=== PATIENT | female | born 1990 | race Caucasian/White ===

== ENCOUNTER → 2018-08-07 16:14 | Outpatient (CLI) | payer OTHER, SELFPAY ==
[2018-08-07 16:43] LABS: Appearance Urine UA SL CLOUDY; Bilirubin Urine UA NEGATIVE (NEGATIVE); Color Urine UA YELLOW; Glucose Urine UA NEGATIVE (Normal); Ketones Urine UA NEGATIVE (NEGATIVE); Leukocyte Esterase Urine UA TRACE (NEGATIVE); Nitrite Urine UA Negative (Negative); Occult Blood Urine UA 2+ (Negative); Protein Urine UA NEGATIVE (Negative); Specific Gravity Urine UA 1.025 (1.000-1.035); Urobilinogen Urine UA 0.2 E.U./dL (0.2)
[2018-08-07 17:12] LABS: RBC Urine 1-5/HPF (0-5/HPF)
[2018-08-07 17:13] LABS: Amorphous Sediment Urine 1+; Bacteria Urine Occasional (0-1); Mucus Urine 1+ (Negative); Squamous Epithelial Cell Urine 5-10 /HPF; WBC Urine 1-5/HPF (0-5/HPF)
[2018-08-07 17:16] LABS: Add Manual Diff / Slide Review NO; Basophils Percent Auto 0.4 % (0-2); Eosinophils Percent Auto 0.7 % (2-4); Hematocrit 39.8 % (36-46); Hemoglobin 13.8 g/dL (12.0-16.0); Lymphocytes Percent Auto 26.6 % (25-40); Mean Corpuscular HGB Conc 34.6 % (30-36); Mean Corpuscular Hemoglobin 30.3 PG (26-34); Mean Corpuscular Volume 87.7 fL (80-100); Monocytes Percent Auto 6.4 % (3-14); Neutrophils Absolute Auto 6500 /uL (3000-5900); Neutrophils Percent Auto 65.9 % (50-75); Platelet Count 381 X10^3/uL (150-400); Red Blood Cell Count 4.53 X10^6/uL (4.0-5.2); Red Cell Distribution Width 13.1 % (11.6-14.8); White Blood Cell Count 9.8 X10^3/uL (4.5-11.0)
[2018-08-07 18:18] LABS: Hepatitis B Surface Antigen NEGATIVE s/c (NEGATIVE); Rubella Antibody IgG 32.3 IU/mL (>15)
[2018-08-07 18:35] LABS: HIV 1 and 2 Antibody NEGATIVE (NEGATIVE); Hep C Virus Ab w/Reflex Quant NEGATIVE s/c (NEGATIVE)
[2018-08-09 16:03] LABS: HSV 2 IGG AB < 0.90 index (< 0.90); HSV1IGG < 0.90 index (< 0.90)
[2018-08-15 10:24] LABS: Rapid Plasma Reagin NON-REACTIVE
== END ==
PROVIDERS: Family Provider Specialist; PCP Specialist; Visit Provider Specialist
DX: Z34.81 Encounter for supervision of other normal pregnancy, first trimester (principal); Z3A.01 Less than 8 weeks gestation of pregnancy
CPT/HCPCS: 36415; 80055; 81003; 81015; 86695; 86696; 86703; 86787; 86803; 86850; 86900; 86901; 87086

== ENCOUNTER → 2018-09-06 11:23 | Outpatient (CLI) | payer OTHER, SELFPAY | PROVIDERS: Family Provider Specialist; PCP Specialist; Visit Provider Specialist | DX: R30.0 Dysuria (principal) | CPT/HCPCS: 87086 ==

== ENCOUNTER → 2018-11-08 15:44 | Outpatient (CLI) | payer OTHER, SELFPAY ==
--- NOTE | 2018-11-08 15:45 | DI.US.S_ITS ---
PROCEDURE: US OB >= 14 WEEKS FETUS INDICATIONS: anatomy survey OUTSIDE/PRIOR DATING DATA: Last menstrual period (LMP): 05/21/18. LMP-based estimated date of delivery (RUBIN): 02/25/19. First dating scan (date and location): 08/07/18, by Dr. Schwartz. Estimated date of delivery (RUBIN) from first dating scan: 03/25/19, by Dr. Schwartz. TECHNIQUE: Real-time scanning was performed of the fetus, with image documentation and biometric measurements. Endovaginal scanning: Not needed for the study. COMPARISON: [facility], , OB <= 14 WEEKS FETUS, 09/06/2018, 11:07. [facility], , OB <= 14 WEEKS FETUS, 08/07/2018, 16:04. [facility], , OB >= 14 WEEKS FETUS, 11/01/2018, 11:55. FINDINGS: General: A single living intrauterine gestation is present. Presentation: Breech. Placenta: Placental position is anterior, without previa. Amniotic fluid index: 13.8 cm, normal range is 5-24 cm. heart rate: 140 beats per minute. Maternal cervical canal: 4.0 cm long. Normal lower limit is 2.5 cm. biometrics: Biparietal diameter: 4.8 cm, 20 weeks 3 days Head circumference: 18.2 cm, 20 weeks 4 days Abdominal circumference: 15.8 cm, 20 weeks 6 days Femur length: 3.4 cm, 20 weeks 4 days Estimated gestational age from initial scan: 20 weeks 3 days Composite gestational age from present scan: 20 weeks 4 days Estimated weight and percentile: 375 g, 64th percentile Measurement variability for biometric dating: +/- 7 days from 14 weeks to 15 weeks 6 days gestation, +/- 10 days from 16 weeks to 21 weeks 6 days gestation, +/- 2 weeks from 22 weeks to 27 weeks 6 days gestation, +/- 3 weeks for 28 weeks gestation or later. weight reference: 4500 g or EFW >90/95% is considered macrosomia or large for gestational age. EFW <10% is small for gestational age. EFW 5% or less is considered intra-uterine growth restriction. Anatomic survey: Neuro: Ventricles are non-dilated at less than 10 mm. Cisterna magna is normal at 3-11 mm. Cerebellum is normal in size and morphology. Nuchal skin fold: Normal at less than 6 mm between 14-21 weeks gestational age. Face: Nose and lips, facial profile are normal. Spine: No evidence for spina bifida. Heart: 4-chambered heart is present, with normal ventricular outflow tracts. Diaphragm: Diaphragm is intact. Stomach: Left-sided stomach is present. Kidneys: No hydronephrosis. Normal is less than 5 mm in 2nd trimester, less than 7 mm in 3rd trimester. Cord: 3-vessel cord has orthotopic insertion. Bladder: Normal in size. Extremities: All 4 extremities identified. IMPRESSION: Single living intrauterine gestation in breech presentation with appropriate interval growth and no anomalies seen. The delivery date is projected to be centered on 03/25/19, plus or -5 days, based on the first OB ultrasound by Dr. Schwartz 08/07/18. Dictated by: Jamshid Cruz M.D. on 11/08/2018 at 16:41 Approved by: Jamshid Cruz M.D. on 11/08/2018 at 16:44
== END ==
PROVIDERS: PCP Specialist; Visit Provider Specialist
DX: Z34.82 Encounter for supervision of other normal pregnancy, second trimester (principal); Z36.89 Encounter for other specified antenatal screening; Z3A.20 20 weeks gestation of pregnancy
CPT/HCPCS: 76811

== ENCOUNTER → 2018-12-12 13:43 | Outpatient (CLI) | payer OTHER, SELFPAY ==
[2018-12-12 15:36] LABS: Hematocrit 40.1 % (36-46); Hemoglobin 13.5 g/dL (12.0-16.0)
[2018-12-12 16:30] LABS: GTT (PREG) 1 Hour PP 50gm Dose 148 mg/dL (76-139)
== END ==
PROVIDERS: PCP Specialist; Visit Provider Specialist
DX: Z34.82 Encounter for supervision of other normal pregnancy, second trimester (principal)
CPT/HCPCS: 36415; 82950; 85014; 85018

== ENCOUNTER → 2018-12-18 07:57 | Outpatient (CLI) | payer OTHER, SELFPAY ==
[2018-12-18 10:33] LABS: Glucose Fasting Gestational 83 mg/dL (76-95)
[2018-12-18 10:33] LABS: Glucose 1 Hour Gest 151 mg/dL (76-180)
[2018-12-18 11:21] LABS: Glucose 2 Hour Gest 127 mg/dL (76-155)
[2018-12-18 11:24] LABS: Glucose Tol Interp,Gestational INTERPRETATION
[2018-12-18 12:17] LABS: Glucose 3 Hour Gest 79 mg/dL (76-140)
== END ==
PROVIDERS: PCP Specialist; Visit Provider Specialist
DX: O99.810 Abnormal glucose complicating pregnancy (principal)
CPT/HCPCS: 82951; 82952

== ENCOUNTER → 2019-02-03 09:47 | Outpatient (CLI) | payer OTHER, SELFPAY ==
[2019-02-03 10:16] LABS: Influenza A and B by PCR Rapid Negative (Negative)
== END ==
PROVIDERS: PCP Specialist; Visit Provider Physician Assistant
DX: R68.89 Other general symptoms and signs (principal)
CPT/HCPCS: 87400

== ENCOUNTER → 2019-02-24 09:15 | Outpatient (CLI) | payer OTHER, SELFPAY ==
[2019-02-25 07:54] LABS: Strep Grp B PCR POS for Grp B Strep
== END ==
PROVIDERS: PCP Specialist; Visit Provider Specialist
DX: Z34.03 Encounter for supervision of normal first pregnancy, third trimester (principal); Z3A.35 35 weeks gestation of pregnancy
CPT/HCPCS: 87653

== ENCOUNTER 2019-02-24 09:16 | Outpatient (CLI) | payer OTHER, SELFPAY ==
--- NOTE | 2019-02-24 09:41 | PM.OBTRLD ---
Visit Information Visit Information Date of evaluation: 02/24/19 Primary OB Provider: Davina Schwartz Reason for Evaluation: Yes non-stress test non-stress test reason: decreased movement PFSH Surgical History (Updated 07/30/18 @ 15:49 by Marga Almanzar) History of third molar tooth extraction (Resolved) Social History Smoking Status: Never smoker Social History Smoking Status: Never smoker Evaluation Evaluation Baseline heart rate: 150 Variability: Moderate (11-25) monitor accelerations: Present monitor decelerations: Absent Category of Tracing: I Diagnosis, Plan/Disposition Final Diagnosis (1) 34 weeks gestation of : Current Visit: Yes Status: Acute (2) Decreased movement affecting management of in third trimester: Current Visit: Yes Status: Acute Plan/Disposition Plan: Reactive nonstress test OB Disposition: home
== END 2019-02-24 09:57 | disposition home or self-care (01) ==
LOC: LABOR 10:14 → OB 02-25 08:03
PROVIDERS: PCP Specialist; Visit Provider Specialist
DX: O36.8130 Decreased fetal movements, third trimester, not applicable or unspecified (principal); Z3A.34 34 weeks gestation of pregnancy
CPT/HCPCS: 59025; 87653; G0378; G0379

== ENCOUNTER 2019-03-20 09:30 | Inpatient (IN) | payer OTHER, SELFPAY ==
[2019-03-20 11:00] LABS: Add Manual Diff / Slide Review NO; Basophils Absolute Auto 100 /uL (0-100); Basophils Percent Auto 0.7 % (0-2); Eosinophils Absolute Auto 0 /uL (0-450); Eosinophils Percent Auto 0.3 % (2-4); Hematocrit 38.7 % (36-46); Hemoglobin 12.5 g/dL (12.0-16.0); Lymphocytes Absolute Auto 2200 /uL (1100-4500); Lymphocytes Percent Auto 17.4 % (25-40); Mean Corpuscular HGB Conc 32.3 % (30-36); Mean Corpuscular Hemoglobin 27.1 PG (26-34); Mean Corpuscular Volume 84.1 fL (80-100); Monocytes Absolute Auto 1000 /uL (0-900); Monocytes Percent Auto 7.8 % (3-14); Neutrophils Absolute Auto 9400 /uL (1500-7000); Neutrophils Percent Auto 73.8 % (50-75); Platelet Count 369 X10^3/uL (150-400); Red Cell Distribution Width 14.4 % (11.6-14.8); White Blood Cell Count 12.8 X10^3/uL (4.5-11.0)
[2019-03-20] MEDS: PENICILLIN G POTASSIUM 5,000,000 UNIT in DEXTROSE 5% IN WATER 250 ML IV (11:00)
[2019-03-20] MEDS: OXYTOCIN PREMIX 30 UNIT/500 ML PLAST..BAG IV (12:52)
--- NOTE | 2019-03-20 16:53 | PM.OBHP.1 ---
OB HPI Date/Time Date of admission: 03/20/19 Date Patient Seen: 03/20/19 Time Patient Seen: 10:00 History of Present Condition Chief complaint: EVALUATION OF LABOR : 3 Para: 1 Estimated Date of Delivery: 03/25/19 Estimated Gestational Age (weeks): 39 Narrative: Senait Douglas is a 28 year old female admitted for induction for advanced cervical dilation in distance from the hospital Indications Indication for induction OB: maternal distance History of Present care: good care, initiated at week # (11), number of visits (13) and pounds weight gain (16) Dating criteria: LMP confirmed by 1st trimester US Ultrasounds: normal mid trimester US Obstetrical complications: none Medical complications: none Preadmission Labs Blood type: A (+) positive -: Antibody screen: negative, GBS status: positive, HBsAG: negative, HIV: negative and RPR/VDLR: negative -: Chlamydia screen: not detected and Gonorrhea screen: not detected -: Rubella: immune and Varicella: immune HCAB: negative 1 hr GTT: 148 3 hr GTT: 1 hr (151), 2 hr (127) and 3 hr (79) Fasting blood glucose: 83 Prior (ies) History: 05/2017 Vaginal delivery male 9 lb 9 oz Evaluation Evaluation Baseline heart rate: 130 Variability: Moderate (11-25) monitor accelerations: Present monitor decelerations: Absent Contraction Frequency (minutes): 5 Uterine Contraction Intensity: Mild Category of Tracing: I Cervical dilation (cm): 6 Cervical effacement (%): 75 station: -2 Laboratory results: Laboratory Tests 03/20/19 03/20/19 10:25 10:25 WBC 12.8 H RBC 4.60 Hgb 12.5 Hct 38.7 MCV 84.1 MCH 27.1 MCHC 32.3 RDW 14.4 Plt Count 369 Neut % (Auto) 73.8 Lymph % (Auto) 17.4 L [place] % (Auto) 7.8 Eos % (Auto) 0.3 L Baso % (Auto) 0.7 Neut # (Auto) 9400 H Lymph # (Auto) 2200 [place] # (Auto) 1000 H Eos # (Auto) 0 Baso # (Auto) 100 Blood Type A Positive Antibody Screen Negative ON LICENSE OF [facility] Surgical History (Updated 07/30/18 @ 15:49 by Marga Almanzar) History of third molar tooth extraction (Resolved) Social History Smoking Status: Never smoker Social History Smoking Status: Never smoker Meds Home Medications Medication Instructions Recorded Confirmed Type Breast Pump - Double Electric u PRN PRN 03/20/19 History Allergies Allergy/AdvReac Type Severity Reaction Status Date / Time codeine [CODEINE] Allergy Unknown Verified 02/03/19 10:23 epinephrine [EPINEPHRINE] Allergy Unknown BLACK OUT Verified 02/03/19 10:23 Review of Systems Review of Systems Good movement. No leakage of fluid. No signs or symptoms of preeclampsia. All systems reviewed & are unremarkable except as noted in HPI and below Exam Narrative Exam Narrative: HEENT exam within normal limits. Lungs are clear to auscultation and percussion. Heart is regular rate and rhythm no S3-S4 or murmurs. Abdomen is gravid and nontender. extremities without edema and nontender. Objective Labs Result Diagrams: 03/20/19 10:25 Labs: Laboratory Results - last 24 hr 03/20/19 03/20/19 10:25 10:25 WBC 12.8 H RBC 4.60 Hgb 12.5 Hct 38.7 MCV 84.1 MCH 27.1 MCHC 32.3 RDW 14.4 Plt Count 369 Neut % (Auto) 73.8 Lymph % (Auto) 17.4 L [place] % (Auto) 7.8 Eos % (Auto) 0.3 L Baso % (Auto) 0.7 Neut # (Auto) 9400 H Lymph # (Auto) 2200 [place] # (Auto) 1000 H Eos # (Auto) 0 Baso # (Auto) 100 Blood Type A Positive Antibody Screen Negative Assessment and Plan Assessment and Plan Assessment and Plan narrative: Thirty-nine week gestation with advanced cervical dilation admitted for AROM induction. Plan is for vaginal delivery. Patient will receive IV penicillin for positive group B strep culture. Patient requests epidural catheter
--- NOTE | 2019-03-20 16:59 | P.HPOB_ITS ---
OB HPI Date/Time Date of admission: 03/20/19 Date Patient Seen: 03/20/19 Time Patient Seen: 10:00 History of Present Condition Chief complaint: EVALUATION OF LABOR : 3 Para: 1 Estimated Date of Delivery: 03/25/19 Estimated Gestational Age (weeks): 39 Narrative: Senait Douglas is a 28 year old female admitted for induction for advanced cervical dilation in distance from the hospital Indications Indication for induction OB: maternal distance History of Present care: good care, initiated at week # (11), number of visits (13) and pounds weight gain (16) Dating criteria: LMP confirmed by 1st trimester US Ultrasounds: normal mid trimester US Obstetrical complications: none Medical complications: none Preadmission Labs Blood type: A (+) positive -: Antibody screen: negative, GBS status: positive, HBsAG: negative, HIV: negative and RPR/VDLR: negative -: Chlamydia screen: not detected and Gonorrhea screen: not detected -: Rubella: immune and Varicella: immune HCAB: negative 1 hr GTT: 148 3 hr GTT: 1 hr (151), 2 hr (127) and 3 hr (79) Fasting blood glucose: 83 Prior (ies) History: 05/2017 Vaginal delivery male 9 lb 9 oz Evaluation Evaluation Baseline heart rate: 130 Variability: Moderate (11-25) monitor accelerations: Present monitor decelerations: Absent Contraction Frequency (minutes): 5 Uterine Contraction Intensity: Mild Category of Tracing: I Cervical dilation (cm): 6 Cervical effacement (%): 75 station: -2 Laboratory results: Laboratory Tests 03/20/19 03/20/19 10:25 10:25 WBC 12.8 H RBC 4.60 Hgb 12.5 Hct 38.7 MCV 84.1 MCH 27.1 MCHC 32.3 RDW 14.4 Plt Count 369 Neut % (Auto) 73.8 Lymph % (Auto) 17.4 L [place] % (Auto) 7.8 Eos % (Auto) 0.3 L Baso % (Auto) 0.7 Neut # (Auto) 9400 H Lymph # (Auto) 2200 [place] # (Auto) 1000 H Eos # (Auto) 0 Baso # (Auto) 100 Blood Type A Positive Antibody Screen Negative [facility] Surgical History (Updated 07/30/18 @ 15:49 by Marga Almanzar) History of third molar tooth extraction (Resolved) Social History Smoking Status: Never smoker Social History Smoking Status: Never smoker Meds Home Medications Medication Instructions Recorded Confirmed Type Breast Pump - Double Electric u PRN PRN 03/20/19 History Allergies Allergy/AdvReac Type Severity Reaction Status Date / Time codeine [CODEINE] Allergy Unknown Verified 02/03/19 10:23 epinephrine [EPINEPHRINE] Allergy Unknown BLACK OUT Verified 02/03/19 10:23 Review of Systems Review of Systems Good movement. No leakage of fluid. No signs or symptoms of pre eclampsia. All systems reviewed & are unremarkable except as noted in HPI and below Exam Narrative Exam Narrative: HEENT exam within normal limits. Lungs are clear to auscultation and percussion. Heart is regular rate and rhythm no S3-S4 or murmurs. Abdomen is gravid and nontender. extremities without edema and nontender. Objective Labs Result Diagrams: 03/20/19 10:25 Labs: Laboratory Results - last 24 hr 03/20/19 03/20/19 10:25 10:25 WBC 12.8 H RBC 4.60 Hgb 12.5 Hct 38.7 MCV 84.1 MCH 27.1 MCHC 32.3 RDW 14.4 Plt Count 369 Neut % (Auto) 73.8 Lymph % (Auto) 17.4 L [place] % (Auto) 7.8 Eos % (Auto) 0.3 L Baso % (Auto) 0.7 Neut # (Auto) 9400 H Lymph # (Auto) 2200 [place] # (Auto) 1000 H Eos # (Auto) 0 Baso # (Auto) 100 Blood Type A Positive Antibody Screen Negative Assessment and Plan Assessment and Plan Assessment and Plan narrative: Thirty-nine week gestation with advanced cervical dilation admitted for AROM induction. Plan is for vaginal delivery. Patient will receive IV penicillin for positive group B strep culture. Patient requests epidural catheter
--- NOTE | 2019-03-20 16:59 | PM.OBPRVD ---
Delivery date: 03/20/19 Intrapartal events: None Induction method: AROM Delivery augmentation: pitocin Delivery monitor: external FHT and external uterine Route of delivery: L&D Laceration Description: None Estimated blood loss (mL): 200 Anesthesia type: Epidural Narrative: Patient arrived on Labor and delivery for induction for advanced cervical dilation and distance from the hospital. She was AROMed for clear fluid. She received IV penicillin for positive group B strep culture. She received an epidural catheter for pain control. She had Pitocin added to augment her labor. heart tones category 1 throughout labor. The patient delivered spontaneously, over an intact perineum. A loose nuchal cord was released with delivery of the head. The viable female infant was placed on maternal abdomen. After the cord stopped pulsating the cord was clamped, cut and cord bloods obtained. The placenta delivered spontaneously, intact, with 3 vessels. There were no cervical, vaginal, or perineal tears. Both infant and mother doing well. [place] Baby 1: Infant gender: Female Presentation: vertex position: Right Occiput Anterior Placenta delivery description: Spontaneous cord vessel description: Nuchal Cord (Loose) score (1 min): 8 score (5 min): 9 Plan for aftercare: Routine care
[2019-03-20 18:59] VITALS: BP 113/56
[2019-03-21] MEDS: IBUPROFEN 600 MG TABLET PO ×3 (00:30→17:03)
[2019-03-21 07:40] LABS: Hematocrit 35.5 % (36-46); Hemoglobin 11.7 g/dL (12.0-16.0)
--- NOTE | 2019-03-21 10:08 | P.DS_ITS ---
Discharge Providers Date of admission: 03/20/19 09:30 Discharge Date: 03/21/19 Primary care physician: Davina Schwartz MD Consults: 03/20/19 10:25 Consult to Anesthesiology Urgent Comment: Consulting Provider: Anesthesiologist Reason for consultation: Epidural Has provider been notified: No 03/21/19 00:23 Consult to Holistic Health Practitioner Routine Comment: Discharge provider: Davina Schwartz MD Summary Date Patient Seen: 03/21/19 Time Patient Seen: 08:00 Procedures: Vaginal delivery Hospital Course: Patient arrived on Labor and delivery for a AROM induction for advanced cervical dilation and distance from the hospital. She received an epidural catheter for pain control. She received IV penicillin for positive group B strep culture. She had a spontaneous vaginal delivery. She is breast-feeding without difficulty. Urinating and ambulating well. Pain is mild. Peripartum Data Infant Delivery Method: Natural Vaginal Laceration description: None Procedures: IV antibiotics for group B strep culture positive, epidural catheter, spontaneous vaginal delivery. complications: none Time Spent with Patient Total time spent providing and/or coordinating discharge services: Objective Labs Result Diagrams: 03/21/19 06:57 Labs: Laboratory Results - last 24 hr 03/20/19 03/20/19 03/21/19 10:25 10:25 06:57 WBC 12.8 H RBC 4.60 Hgb 12.5 11.7 L Hct 38.7 35.5 L MCV 84.1 MCH 27.1 MCHC 32.3 RDW 14.4 Plt Count 369 Neut % (Auto) 73.8 Lymph % (Auto) 17.4 L [place] % (Auto) 7.8 Eos % (Auto) 0.3 L Baso % (Auto) 0.7 Neut # (Auto) 9400 H Lymph # (Auto) 2200 [place] # (Auto) 1000 H Eos # (Auto) 0 Baso # (Auto) 100 Blood Type A Positive Antibody Screen Negative Exam Vital Signs (past 8 hours): Blood pressure 91/61, pulse 78, temperature 97.6? Narrative Exam Narrative: Patient's abdomen is soft, nontender. Uterus is firm, at U, nontender. Mild lochia. Extremities without edema and nontender. patient is a positive and rubella immune. Discharge Plan Discharge Plan Patient Disposition: Home Discharge Med Rec/Prescriptions Prescriptions: New ibuprofen 600 mg Tablet 600 mg PO Q6HR PRN (Reason: Pain, Mild (1-3)) Qty: 30 RF: 0 Continued Breast Pump - Double Electric PRN PRN (Reason: Labor Induction) RF: 0 Follow up/Referrals: Davina Schwartz MD [Primary Care Provider] - 1 Month Provider Discharge Instructions Diet: Regular Activity: Nothing in vagina for 4 weeks Skin/Wound/Dressing Care Report to your healthcare provider any signs of infection, such as:: chills, fever, increased pain and unusual drainage Visit Report/Discharge Packet Stand Alone Forms: Discharge: Care Discharge Data Primary Care Provider: Davina Schwartz Attending Provider: Davina Schwartz Admit Date/Time: 03/20/19 09:30
[2019-03-21 17:11] VITALS: BP 113/79; PULSE 84; RESP 18; TEMP 36.5
== END 2019-03-21 18:05 | disposition home or self-care (01) | DRG 807 ==
PROVIDERS: Admitting Provider Specialist; PCP Specialist; Visit Provider Specialist
DX: O99.824 Streptococcus B carrier state complicating childbirth (principal); Z37.0 Single live birth; Z3A.39 39 weeks gestation of pregnancy; O69.81X0 Labor and delivery complicated by cord around neck, without compression, not applicable or unspecified
CPT/HCPCS: 01967; 36415; 59050; 59400; 85014; 85018; 85025; 86850; 86900; 86901; G0379; J2540; J2590

== ENCOUNTER → 2021-02-15 09:50 | Outpatient (CLI) | payer OTHER, SELFPAY ==
[2021-02-15 11:52] LABS: TSH w/ Reflex to FT4 1.14 uIU/mL (0.47-4.68)
== END ==
PROVIDERS: Referring Provider Specialist; Visit Provider Specialist
DX: R63.5 Abnormal weight gain (principal); Z83.49 Family history of other endocrine, nutritional and metabolic diseases
CPT/HCPCS: 36415; 84443

== ENCOUNTER 2023-02-11 21:42 | Emergency (ER) | payer OTHER, SELFPAY ==
[2023-02-11 21:46] VITALS: BP 139/90; PULSE 114; RESP 16; TEMP 36.6; O2SAT 100; BMI 35.4
--- NOTE | 2023-02-11 21:49 | DI.US.S_ITS ---
PROCEDURE: US OB <= 14 WEEKS FETUS INDICATIONS: pelvic bleeding, cramping 11.5 weeks OUTSIDE/PRIOR DATING DATA: Last menstrual period (LMP): 11/23/2022. LMP-based estimated date of delivery (RUBIN): 08/30/2023. First dating scan (date and location): 01/23/2023. Estimated date of delivery (RUBIN) from first dating scan: 08/29/2023. TECHNIQUE: Real-time scanning was performed of the fetus and maternal pelvic organs, with image documentation. Endovaginal scanning was also performed to better visualize the fetus and maternal ovaries. COMPARISON: [facility], US, US OB <= 14 WEEKS FETUS, 01/23/2023, 15:59. FINDINGS: Embryo: There is an intrauterine with the pole demonstrating a crown-rump length of 5.2 cm corresponding to gestational age of 11 weeks 6 days. There is heart motion with a rate of 180 beats per minute. Maternal organs: The ovaries were not visualized in the adnexa. No adnexal masses identified. IMPRESSION: 1. Single living intrauterine demonstrating appropriate interval growth with calculated gestational age of 11 weeks 6 days, concordant with expected gestational age at 11 weeks 3 days based on LMP. We strive to produce accurate, complete, and clear reports of imaging services. To assist us in improving patient care, this report was composed using standard report templates and voice recognition software. Therefore, it may contain abnormal punctuation, insertions and/or omissions. Occasional wrong-word or sound-alike substitutions may occur. Though we review the report and make efforts to correct it, we do recommend that the report be read carefully in proper context to recognize any text inaccuracies. A Dictated by: Rolando Doty M.D. on 02/11/2023 at 23:50 Approved by: Rolando Doty M.D. on 02/12/2023 at 0:01
[2023-02-11 21:51] VITALS: PULSE 98; RESP 16; O2SAT 98
[2023-02-11 22:57] LABS: Add Manual Diff / Slide Review NO; Basophils Absolute Auto 100 /uL (0-100); Basophils Percent Auto 0.5 % (0-2); Eosinophils Absolute Auto 0 /uL (0-450); Eosinophils Percent Auto 0.4 % (2-4); Hematocrit 43.5 % (36-46); Lymphocytes Absolute Auto 2300 /uL (1100-4500); Lymphocytes Percent Auto 20.3 % (25-40); Mean Corpuscular HGB Conc 34.4 % (30-36); Mean Corpuscular Hemoglobin 30.2 PG (26-34); Mean Corpuscular Volume 87.9 fL (80-100); Monocytes Absolute Auto 600 /uL (0-900); Monocytes Percent Auto 5.4 % (3-14); Neutrophils Absolute Auto 8300 /uL (1500-7000); Neutrophils Percent Auto 73.4 % (50-75); Platelet Count 387 X10^3/uL (150-400); Red Blood Cell Count 4.95 X10^6/uL (4.0-5.2); Red Cell Distribution Width 12.9 % (11.6-14.8); White Blood Cell Count 11.4 X10^3/uL (4.5-11.0)
[2023-02-11 23:19] LABS: BUN Creatinine Ratio 11.8 (6-22); Blood Urea Nitrogen 6 mg/dL (7-17); Calcium 9.6 mg/dL (8.4-10.2); Carbon Dioxide 19 mmol/L (22-32); Chloride 104 mmol/L (98-107); Estimated Glomerular Filt Rate > 60 mL/min (>60); Glucose 132 mg/dL (70-100); HEMOLYSIS < 15 (0-50); Potassium 3.4 mmol/L (3.4-5.1); Sodium 136 mmol/L (137-145)
--- NOTE | 2023-02-11 23:46 | ED_ITS ---
HPI - General Chief complaint: Vaginal Bleeding Stated complaint: bleeding/ 11.5 wks prego Time Seen by Provider: 02/11/23 21:48 Source: patient Mode of arrival: Ambulatory Limitations: no limitations History of Present Illness HPI Narrative: 32-year-old female nonsmoker without significant medical history presents with family in the chief complaint a small amount of vaginal bleeding earlier today. She is a at 11 weeks and admits that she has been increasingly constipated over the past week or 2 and has been taking Zofran to help with episodes of vomiting. She states that she is been taking some pzio-hnt-clozfqj medications to help with moving her bowels but this evening she attempted to perform a self check and scratched her vaginal wall with her finger and bled briefly. She called her OB provider who stated there was very low likelihood of any significant abnormality but suggested it would be reasonable to come to the emergency department to put her mind at rest. She denies any fever or chills. She is not dizzy nor weak or lightheaded. She has no chest pain or shortness of breath and denies abdominal pain, diarrhea. She is had no vaginal bleeding in an ongoing fashion nor leakage of fluid and denies any urinary complaints. Related Data Home Medications Medication Instructions Recorded Confirmed prenat.vits,meliton,qnz-eflu-ymotp 1 tab PO DAILY 12/22/22 01/23/23 Previous Rx's Medication Instructions Recorded ondansetron 4 mg disintegrating 4 mg PO Q6-8H PRN nausea and 01/12/23 tablet vomiting #20 tabs Allergies Allergy/AdvReac Type Severity Reaction Status Date / Time codeine [CODEINE] Allergy Unknown Verified 02/11/23 21:46 epinephrine [EPINEPHRINE] AdvReac Unknown BLACK OUT Verified 02/11/23 21:46 Review of Systems Review of Systems Narrative: GENERAL: Denies chills, fatigue, malaise, fever, sweats. HEENT: Denies sinus pain, ear pain, sore throat, difficulty swallowing, dizziness. RESPIRATORY: Denies dyspnea, cough, wheezing, hemoptysis, sputum. CARDIOVASCULAR: Denies chest pain, palpitations, orthopnea, edema, GASTROINTESTINAL: See HPI : See HPI MUSCULOSKELETAL: denies weakness, joint pain, or bony pain SKIN: Denies rash, skin lesions, or other NEUROLOGIC: Denies weakness, headache, numbness, change in speech, confusion, seizures, incoordination. PSYCHIATRIC: No concerning psychosocial issues. 12 point review of systems is negative except for those stated above Exam Narrative Exam Narrative: GEN: AOx3 and in mild distress EYES: Pupils are equal, round, and reactive to light and accommodation. Extraocc ular muscles are intact bilaterally. There is no subconjunctival hemorrhage or exudate. CHEST: Lungs are clear to auscultation bilaterally and free of wheezes, rales, or rhonchi. Heart rate is regular rhythm, there are no murmurs, clicks, rubs, or gallops. There is no chest wall tenderness. ABD: Abdomen is soft and nontender. There is no guarding or rebound. Bowel sounds are normal in all 4 quadrants. There is no mass or organomegaly. EXT: Full painless ROM of all extremities with no loss of sensation or strength. SKIN: Warm, pink, and dry. No erythema or rash Initial Vital Signs Initial Vital Signs: Vital Signs Temperature 97.9 F 02/11/23 21:46 Pulse Rate 114 H 02/11/23 21:46 Respiratory Rate 16 02/11/23 21:46 Blood Pressure 139/90 02/11/23 21:46 Pulse Oximetry 100 02/11/23 21:46 Oxygen Delivery Method Room Air 02/11/23 21:46 Course Orders Ordered: ED Orders 02/11/23 21:49 US OB <= 14 weeks fetus Stat 02/11/23 22:47 Basic Metabolic Panel Stat Complete Blood Count AUTO DIFF Stat HCG Quantitative /Beta subunit Stat Vital Signs Vital signs: Vital Signs - 8 hr 02/11/23 21:51 02/11/23 21:46 02/12/23 00:12 Temperature 97.9 F 97.8 F Pulse Rate 98 H 114 H 92 H Respiratory Rate 16 16 16 Blood Pressure 139/90 131/86 Pulse Oximetry 98 100 100 Oxygen Delivery Method Room Air Room Air Room Air MDM - OB/Uterine Contractions Lab Data 02/11/23 22:47 02/11/23 22:47 Labs: Lab Results 02/11/23 02/11/23 02/11/23 Range/Units 22:47 22:47 22:47 WBC 11.4 H (4.5-11.0) X10^3/uL RBC 4.95 (4.0-5.2) X10^6/uL Hgb 15.0 (12.0-16.0) g/dL Hct 43.5 (36-46) % MCV 87.9 (80-100) fL MCH 30.2 (26-34) PG MCHC 34.4 (30-36) % RDW 12.9 (11.6-14.8) % Plt Count 387 (150-400) X10^3/uL Neut % (Auto) 73.4 (50-75) % Lymph % (Auto) 20.3 L (25-40) % [place] % (Auto) 5.4 (3-14) % Eos % (Auto) 0.4 L (2-4) % Baso % (Auto) 0.5 (0-2) % Neut # (Auto) 8300 H (6461-8194) /uL Lymph # (Auto) 2300 (7614-2360) /uL [place] # (Auto) 600 (0-900) /uL Eos # (Auto) 0 (0-450) /uL Baso # (Auto) 100 (0-100) /uL Sodium 136 L (137-145) mmol/L Potassium 3.4 (3.4-5.1) mmol/L Chloride 104 (98-107) mmol/L Carbon Dioxide 19 L (22-32) mmol/L BUN 6 L (7-17) mg/dL Creatinine 0.51 L (0.52-1.04) mg/dL Estimated GFR > 60 (>60) mL/min BUN/Creatinine Ratio 11.8 (6-22) Glucose 132 H (70-100) mg/dL Calcium 9.6 (8.4-10.2) mg/dL HCG, Quant 03282 mIU/mL [facility] Narrative Medical decision making narrative: [32] year old patient presents with Multiple etiologies for patient's symptoms considered including, but not limited to: Traumatic injury, bowel obstruction, urinary tract infection, miscarriage versus other Prior Charts reviewed in our EMR Primary Historian: patient Labs reviewed and interpreted by myself: Imaging reviewed: Single living IUP at 11 weeks Patient with very brief and minimal vaginal bleeding likely a consequence from an accidental abrasion from her finger prior to arrival. Patient asymptomatic for duration of visit, reassuring ultrasound, no further evaluation needed Findings and discharge diagnosis discussed with patient/family followed by verbalization of understanding Return precautions discussed with patient/family whom verbalize understanding of diagnosis and plan Discharge Plan Departure Patient Disposition: Home Clinical Impression: Constipation Instructions: DI for Constipation Activity Restrictions/Additional Instructions: *You have been diagnosed with [constipation, as we discussed your ultrasound is very reassuring.] *What to do: *Please continue to take your regular medications as directed. Per Dr. Perry's recommendations please increase your vitamin B6 and consider the addition of doxylamine. Hopefully this will allow you to take less Zofran which is known to be constipating [ ] New medication prescriptions sent to your pharmacy: [ ] [ ] New medication written as a paper prescription [ ] No new medications given *Please follow up with your primary care provider in 2-3 days, call for an appointment. Let them know you were seen in the Emergency Department and that we ask that you be seen in follow up. We will electronically transmit a record of today's note if your PCP is in our system *Return to Emergency Department if you should have any new, worsening or concerning symptoms, such as [fever greater than 101 F, shaking chills, worsening pain, persistent vomiting or other bothersome symptoms] Prescriptions: No Action ondansetron 4 mg tablet,disintegrating 4 mg PO Q6-8H PRN (Reason: nausea and vomiting) Qty: 20 2RF prenat.vits,meliton,otk-lyvg-bgvok Tablet 1 tab PO DAILY Referrals: Miscellaneous,Doctor, MD [Primary Care Provider] - Stand Alone Forms: Patient Portal/API
[2023-02-12 00:01] LABS: HCG Quantitative /Beta subunit 52061 mIU/mL
[2023-02-12 00:12] VITALS: BP 131/86; PULSE 92; RESP 16; TEMP 36.6; O2SAT 100
== END 2023-02-12 00:13 | disposition home or self-care (01) ==
PROVIDERS: Emergency Provider Emergency Medicine
DX: O46.91 Antepartum hemorrhage, unspecified, first trimester (principal); K59.00 Constipation, unspecified; Z3A.11 11 weeks gestation of pregnancy
CPT/HCPCS: 36415; 76801; 76817; 80048; 84702; 85025; 99284

== ENCOUNTER → 2023-02-15 15:15 | Outpatient (CLI) | payer OTHER, SELFPAY ==
[2023-02-15 15:39] LABS: Add Manual Diff / Slide Review NO; Basophils Absolute Auto 0 /uL (0-100); Basophils Percent Auto 0.4 % (0-2); Eosinophils Absolute Auto 0 /uL (0-450); Eosinophils Percent Auto 0.4 % (2-4); Hematocrit 42.1 % (36-46); Hemoglobin 14.7 g/dL (12.0-16.0); Lymphocytes Absolute Auto 2300 /uL (1100-4500); Lymphocytes Percent Auto 22.7 % (25-40); Mean Corpuscular HGB Conc 34.9 % (30-36); Mean Corpuscular Hemoglobin 30.9 PG (26-34); Mean Corpuscular Volume 88.5 fL (80-100); Monocytes Absolute Auto 500 /uL (0-900); Monocytes Percent Auto 5.3 % (3-14); Neutrophils Absolute Auto 7200 /uL (1500-7000); Neutrophils Percent Auto 71.2 % (50-75); Platelet Count 367 X10^3/uL (150-400); Red Blood Cell Count 4.75 X10^6/uL (4.0-5.2); Red Cell Distribution Width 13.1 % (11.6-14.8); White Blood Cell Count 10.1 X10^3/uL (4.5-11.0)
[2023-02-15 17:18] LABS: Hepatitis B Surface Antigen NEGATIVE s/c (NEGATIVE); Rubella Antibody IgG 27.9 IU/mL (>15)
[2023-02-15 17:40] LABS: HIV 1 & 2 Ab/Ag 4th Gen Combo NEGATIVE (NEGATIVE); Hep C Virus Ab w/Reflex Quant NEGATIVE s/c (NEGATIVE)
[2023-02-16 03:09] LABS: RPR Screen Non Reactive (Non Reactive)
[2023-02-16 11:34] LABS: Varicella IgG Antibody 432 index (Immune >165)
== END ==
PROVIDERS: Referring Provider Obstetrics & Gynecology; Visit Provider Obstetrics & Gynecology
DX: Z34.81 Encounter for supervision of other normal pregnancy, first trimester (principal)
CPT/HCPCS: 36415; 80055; 86787; 86803; 86850; 86900; 86901; 87389

== ENCOUNTER → 2023-03-14 15:33 | Outpatient (CLI) | payer OTHER, SELFPAY | PROVIDERS: Visit Provider Obstetrics & Gynecology | DX: Z34.81 Encounter for supervision of other normal pregnancy, first trimester (principal) | CPT/HCPCS: 87077; 87086; 87147 ==

== ENCOUNTER → 2023-04-12 14:23 | Outpatient (CLI) | payer OTHER, SELFPAY ==
--- NOTE | 2023-04-12 14:24 | DI.US.S_ITS ---
PROCEDURE: US OB >= 14 WEEKS FETUS INDICATIONS: ANATOMY SCAN OUTSIDE/PRIOR DATING DATA: Last menstrual period (LMP): 11/23/2022. LMP-based estimated date of delivery (RUBIN): 08/30/2023. First dating scan (date and location): 01/23/2023. Estimated date of delivery (RUBIN) from first dating scan: 08/29/2023. The calculations are made using the working RUBIN of 08/29/2023. TECHNIQUE: Real-time scanning was performed of the fetus, with image documentation and biometric measurements. Endovaginal scanning: None COMPARISON: [facility], , OB >= 14 WEEKS FETUS, 03/14/2023, 16:09. FINDINGS: General: A single living intrauterine gestation is present. Presentation: Vertex. Placenta: Placental position is anterior , without previa. Amniotic fluid index: 10.8 cm, normal range is 5-24 cm. Single deepest vertical pocket is 4.4 cm. heart rate: 157 beats per minute. Maternal cervical canal: 4.6 cm long. Normal lower limit is 2.5 cm. biometrics: Biparietal diameter: 4.8 cm, 20 week 4 day Head circumference: 17.8 cm, 20 week 2 day Abdominal circumference: 15.7 cm, 20 week 6 day Femur length: 3.3 cm, 20 week 3 day Clinically estimated gestational age: 20 week 1 day Composite gestational age from present scan: 20 week 4 day Estimated weight and percentile: 367 g, 73 percentile Anatomic survey: Neuro: Ventricles are non-dilated at less than 10 mm. Cisterna magna is normal at 3-11 mm. Cerebellum is normal in size and morphology. Nuchal skin fold: Normal at less than 6 mm between 14-21 weeks gestational age. Face: Not well seen Spine: No evidence for spina bifida. Heart: Not well seen Diaphragm: Diaphragm is intact. Stomach: Left-sided stomach is present. Kidneys: No hydronephrosis. Normal is less than 5 mm in 2nd trimester, less than 7 mm in 3rd trimester. Cord: 3-vessel cord has orthotopic insertion. Bladder: Normal in size. Extremities: All 4 extremities identified. IMPRESSION: Single live intrauterine consistent with a 20 week 4 day gestation by current ultrasound. facial profile and right ventricular outflow tract not well seen on current exam. Attention on follow-up. Approved by: Korey Leon M.D. on 04/13/2023 at 10:29
== END ==
PROVIDERS: Referring Provider Obstetrics & Gynecology; Visit Provider Obstetrics & Gynecology
DX: Z34.82 Encounter for supervision of other normal pregnancy, second trimester (principal); Z3A.20 20 weeks gestation of pregnancy
CPT/HCPCS: 76811

== ENCOUNTER → 2023-05-21 10:25 | Outpatient (CLI) | payer OTHER, SELFPAY ==
[2023-05-21 12:36] LABS: Hematocrit 37.2 % (36-46)
[2023-05-21 13:02] LABS: GTT (PREG) 1 Hour PP 50gm Dose 141 mg/dL (76-139)
== END ==
PROVIDERS: Referring Provider Obstetrics & Gynecology; Visit Provider Obstetrics & Gynecology
DX: Z34.82 Encounter for supervision of other normal pregnancy, second trimester (principal); Z3A.26 26 weeks gestation of pregnancy
CPT/HCPCS: 36415; 82950; 85014; 85018

== ENCOUNTER → 2023-06-05 07:54 | Outpatient (CLI) | payer OTHER, SELFPAY ==
[2023-06-05 08:52] LABS: Glucose Fasting Gestational 90 mg/dL (76-95)
[2023-06-05 09:55] LABS: Glucose 1 Hour Gest 187 mg/dL (76-180)
[2023-06-05 11:13] LABS: Glucose Tol Interp,Gestational INTERPRETATION
[2023-06-05 11:59] LABS: Glucose 2 Hour Gest 164 mg/dL (76-155)
[2023-06-05 13:28] LABS: Glucose 3 Hour Gest 119 mg/dL (76-140)
== END ==
PROVIDERS: Referring Provider Obstetrics & Gynecology; Visit Provider Obstetrics & Gynecology
DX: R73.09 Other abnormal glucose (principal)
CPT/HCPCS: 36415; 82951; 82952

== ENCOUNTER → 2023-06-15 12:59 | Outpatient (CLI) | payer OTHER, SELFPAY ==
--- NOTE | 2023-06-15 13:09 | DIAB.GDA ---
Initial Gestational Diabetes Assessment Name: Senait Douglas Date: 06/15/23 Time: 1pm Dx: Gestational Diabetes Provider: Vicky RUBIN: 08/30/23 Weeks: 28 Diet Recall: 2 meals and one snack daily B: 2 eggs with veg (gunn pepper) with ham, thin sliced ww toast with pb D: carb balance tortilla with veggies, mustard and meat Sn: almonds, cheese stick, SF jello or pudding, Larabars, raw veggies and hummus, cottage cheese c berries wants to try egg roll in a bowl and pork stuffed portabellos, southern pot roast Wt changes: -30# Recommendations: Pt had severe nausea/vomiting until 4d ago, took zofran 4x/d but still vomiting every hour. Over the past 4d pt has been able to keep more food down including her vitamins. Following closely for adequate protein and calcium intake due to pts limited food acceptance during . Physical Activity: no intentional physical activity during due to severe nausea. Self-Monitoring Blood Glucose: Pts BG log shows excellent FBG and 2hPP values. Date Pre Post 2h Pre Post Pre Post HS 06/06 87 103 90 06/08 88 103 95 113 06/14 83 99 Diabetes Medications: Tums daily stopped Zofran 4d ago Pertinent Labs: Pt failed 1st and 2nd hour of OGTT Nutrition Rx: Carbohydrates: Meal: 45-g lunch and dinner; 30g breakfast Snack: 15-30g Nutrition Diagnosis: Altered nutrition related lab value r/t GDM dx aeb recent OGTT Intervention: This participant was very receptive. Provided appropriate educational handouts. Discussed the following topics: GDM pathophysiology and impact of hyperglycemia on mom and baby Risk for T2DM for mom and baby in the future Ways to reduce risk T2DM Plate Method, meal timing, carb counting, pairing macronutrients and spreading out CHO for better BG management Blood glucose goals (FBG: <95 and 1 hour <140 mg/dL); importance of checking 4x per day (FBG and pc) Impact of macronutrients on blood glucose Recommended servings for carbohydrates at meals and snacks Brainstormed appropriate meal plan based on her food preferences Role of physical activity and following provider guidelines for safety Goals: Pt will continue to check FBG daily and 2h PP-New Pt will slowly start expanding food variety with focus on protein and calcium containing foods. -NEW Follow-up: KERVIN saldivar/u in 3 weeks Francheska Hidalgo RDN Clinical Dietitian T: [phone] F: [phone] Thank you for this referral
== END ==
PROVIDERS: Absent Provider Obstetrics & Gynecology; Family Provider Obstetrics & Gynecology; PCP Obstetrics & Gynecology; Referring Provider Obstetrics & Gynecology; Visit Provider Obstetrics & Gynecology
DX: O24.419 Gestational diabetes mellitus in pregnancy, unspecified control (principal); Z3A.28 28 weeks gestation of pregnancy; Z71.3 Dietary counseling and surveillance
CPT/HCPCS: 97802

== ENCOUNTER → 2023-07-06 14:30 | Outpatient (CLI) | payer OTHER, SELFPAY ==
--- NOTE | 2023-07-06 15:08 | DIAB.GDFU ---
Follow-up Gestational Diabetes Assessment Name: Senait Douglas Date: 07/06/23 Time: 2:30pm Dx: Gestational Diabetes Provider: Vicky Diet Recall: Pt with nearly no nausea at this point. Still takes Tums for GERD daily. Pt noticed she has nausea/dry heaving when BG <82. Pt doing well eating adequate calcium and protein per last visit. Pt successfully tried egg roll in a bowl, southern pot roast. No PP BGs over range. Two FBGs 94 but these were after poor sleep, rest under 90, diet managed. Diabetes Medications: none Nutrition Rx: Carbohydrates: Meal: 45-g lunch and dinner; 30g breakfast Snack: 15-30g Nutrition Diagnosis: Altered nutrition related lab value r/t GDM dx aeb recent OGTT Intervention: This participant was very receptive. Provided appropriate educational handouts. Discussed the following topics: recommendations for T2DM risk reduction OGTT at 6-12 weeks HgA1c q 1-3 years. Pt worried her off-brand glucometer may not be accurate. This RD delivered Accu-check sample to OB office to provide patient at her next visit so she can compare machines. Goals: Continue to monitor FBG daily and spot check PPs.- ongoing Check BGs with alternate glucometer to ensure accurate per pt concerns- NEW Follow-up: PRN, no f/u required if BGs remain within goal range. Pt will schedule if she has any concerns or situation changes. Francheska Hidalgo RD Registered Dietitian T: [phone] F: [phone] Thank you for this referral
== END ==
PROVIDERS: Family Provider Obstetrics & Gynecology; Referring Provider Obstetrics & Gynecology; Visit Provider Obstetrics & Gynecology
DX: O24.419 Gestational diabetes mellitus in pregnancy, unspecified control (principal); Z71.3 Dietary counseling and surveillance
CPT/HCPCS: 97803

== ENCOUNTER 2023-08-21 16:50 | Outpatient (CLI) | payer OTHER, SELFPAY | END 2023-08-21 18:02 | disposition home or self-care (01) | LOC: OB 08-23 16:57 | PROVIDERS: Family Provider Obstetrics & Gynecology; Referring Provider Obstetrics & Gynecology; Visit Provider Obstetrics & Gynecology | DX: O36.8130 Decreased fetal movements, third trimester, not applicable or unspecified (principal); O47.1 False labor at or after 37 completed weeks of gestation; Z3A.38 38 weeks gestation of pregnancy | CPT/HCPCS: 59025; G0378; G0379 ==

== ENCOUNTER 2023-08-23 06:59 | Inpatient (IN) | payer OTHER, SELFPAY ==
[2023-08-23 07:50] LABS: Add Manual Diff / Slide Review NO; Basophils Absolute Auto 100 /uL (0-100); Basophils Percent Auto 0.6 % (0-2); Eosinophils Absolute Auto 0 /uL (0-450); Eosinophils Percent Auto 0.2 % (2-4); Hematocrit 37.6 % (36-46); Hemoglobin 12.9 g/dL (12.0-16.0); Lymphocytes Absolute Auto 1700 /uL (1100-4500); Lymphocytes Percent Auto 15.7 % (25-40); Mean Corpuscular HGB Conc 34.3 % (30-36); Mean Corpuscular Hemoglobin 30.1 PG (26-34); Mean Corpuscular Volume 87.8 fL (80-100); Monocytes Absolute Auto 800 /uL (0-900); Monocytes Percent Auto 7.2 % (3-14); Neutrophils Absolute Auto 8500 /uL (1500-7000); Neutrophils Percent Auto 76.3 % (50-75); Platelet Count 277 X10^3/uL (150-400); Red Blood Cell Count 4.28 X10^6/uL (4.0-5.2); White Blood Cell Count 11.1 X10^3/uL (4.5-11.0)
--- NOTE | 2023-08-23 07:53 | P.HPOB_ITS ---
OB HPI Date/Time Date of admission: 08/23/23 Date Patient Seen: 08/23/23 Time Patient Seen: 07:54 History of Present Condition Chief complaint: INDUCTION RUBIN Calculator 2 Estimated Delivery Date Method Current WG Current Estimate 08/30/23 LMP (Certain) 39w 0d Other Estimates 08/30/23 Ultrasound #1 39w 0d Estimated Gestational Age (weeks): 39 : 3 Para: 2 care: good care, initiated at week # (8), number of visits (11) and pounds weight gain (0) Dating criteria OB: LMP confirmed by 1st trimester US Ultrasounds: normal 1st trimester US and normal mid trimester US Obstetrical complications: gestational diabetes (Diet control) Medical complications OB: none Indications Indication for induction OB: gestational diabetes and other (History of LGA babies) Preadmission Labs Last OB Lab Results: 2 Blood Type A Positive 08/23/23 07:22 Antibody Screen Negative 08/23/23 07:22 Hematocrit 37.6 % (36-46) 08/23/23 07:22 Hemoglobin 12.9 g/dL (12.0-16.0) 08/23/23 07:22 Hepatitis B Surface Antigen Negative s/c (NEGATIVE) 02/15/23 15 :19 Hepatitis C Antibody Negative s/c (NEGATIVE) 02/15/23 15:19 Rubella Antibody 27.9 IU/mL (>15) 02/15/23 15:19 Varicella-Zoster IgG Antibody 432 index (Immune >165) 02/15/23 15:19 Glucose 1 Hour 141 mg/dL (76-139) H 05/21/23 11:55 Group B Streptococcus (PCR) Pos for grp b strep H 02/24/19 09:1 5 -: Chlamydia screen: negative, Gonorrhea screen: negative and Urine: negative -: PAP smear: Normal External Labs -: Urine: negative Prior (ies) Past Pregnancies Del. Date GA/Weeks Labor Lgth Wt Sex Route Outcome Anesthesia Place Delv Breastfeed Preg Comp Name 05/14/17 39 14 9 lb 9 oz Male vaginal live - full term IH 9 months labor Yoav 03/20/19 39 6 8 lb 9 oz Female vaginal live - full term IH 13 months none [place] Delivery Date: 05/14/17 Last Updated by: Malaika Garner RN dilation->bedrest ~31 weeks until 37 wk Evaluation Evaluation Baseline heart rate: 145 Variability: Moderate (11-25) monitor accelerations: Present Monitor Decelerations: Absent Uterine Contraction Intensity: Mild Dilation (cm): 3 Effacement (%): 75 station: -2 Position of cervix: mid Consistency: soft [facility] Medical History (Updated 08/14/23 @ 16:35 by Davina Schwartz MD) Gestational diabetes Family history of thyroid disorder Thumb laceration ENDOMETRITIS FOLLOWING DELIVERY Vaginal delivery Surgical History (Updated 12/22/22 @ 11:11 by Malaika Garner RN) H/O tympanostomy History of tonsillectomy and adenoidectomy History of third molar tooth extraction Family History (Updated 12/22/22 @ 11:20 by Malaika Garner RN) Mother Hypothyroidism H/O: hysterectomy Family/Other H/O: hysterectomy Hypothyroidism Grandmother Cancer Eczema Anxiety Son Eczema Grandfather Skin cancer Pacemaker Father History of hip replacement Grandfather Testicular cancer Meningitis Guillain-Baldwyn syndrome Grandmother COPD (chronic obstructive pulmonary disease) Family/Other Heart disease Sister hemorrhage History of anesthesia reaction Spinal and epidural anesthesia-induced headache during labor and delivery Social History marital status: household members: spouse and children lives independently: Yes caregiver/support person: Yes housing: house pets and animals: Yes (1 dog) education level: master's degree (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) occupational status: employed current occupational exposures/hazards: No special hanny needs: No travel history: over 6 months ago seatbelt use: always helmet use: Yes water heater temp set < 120 deg: Yes working smoke detector in home: Yes fire extinguisher in home: Yes carbon monox detector in home: Yes firearms in home: Yes firearms unloaded and locked: Yes do you feel safe at home: Yes Smoking Status: Never smoker second hand exposure: No alcohol intake: former (occasionally when not ) substance use type: does not use during the past year weight has: remained stable well-balanced diet: daily or most days daily servings fruits/ve or more times/day caffeine: Yes (1 cup coffee/day) Type(s) of exercise: walking, aerobic and weight lifting frequency: 3-4 times per week Meds Home Medications and Allergies Home Medications Medication Instructions Recorded Confirmed Type prenat.vits,meliton,xke-icgz-aztly 1 tab PO DAILY 12/22/22 08/23/23 History ondansetron 4 mg disintegrating 4 mg PO Q6-8H PRN nausea and 01/12/23 08/23/23 Rx tablet vomiting #20 tabs ferrous gluconate 324 mg (37.5 mg 324 mg PO DAILY 05/09/23 08/23/23 History iron) tablet blood sugar diagnostic (Blood #120 ea 06/05/23 08/23/23 Rx Glucose Test strips) blood-glucose meter (Blood Glucose #1 ea 06/05/23 08/23/23 Rx Monitoring kit) lancets #120 ea 06/05/23 08/23/23 Rx Allergies Allergy/AdvReac Type Severity Reaction Status Date / Time codeine [CODEINE] Allergy Unknown Verified 08/21/23 16:14 epinephrine [EPINEPHRINE] AdvReac Unknown BLACK OUT Verified 08/21/23 16:14 OB Exam Narrative Exam Narrative: Generally: Patient is sitting up in bed, no acute distress Fundus: 40 cm Estimated weight: 8 and half to 9 lb Extremities: Trace edema, 1+ DTRs Objective Labs 08/23/23 07:22 Labs: Laboratory Results - last 24 hr 08/23/23 07:22 WBC 11.1 H RBC 4.28 Hgb 12.9 Hct 37.6 MCV 87.8 MCH 30.1 MCHC 34.3 RDW 14.0 Plt Count 277 Neut % (Auto) 76.3 H Lymph % (Auto) 15.7 L [place] % (Auto) 7.2 Eos % (Auto) 0.2 L Baso % (Auto) 0.6 Neut # (Auto) 8500 H Lymph # (Auto) 1700 [place] # (Auto) 800 Eos # (Auto) 0 Baso # (Auto) 100 Assessment and Plan Assessment and Plan Assessment and Plan narrative: Assessment: 33-year-old 3 para 2 with a history of large for gestational age babies Gestational diabetes, diet controlled Group B strep bacteriuria Plan: Pitocin per protocol 2 Begin group B strep prophylaxis AROM after second dose of antibiotic Expected management to spontaneous vaginal delivery Time Spent with Patient Total time spent with greater than 50% in coordination of care (as documented) at patient's floor/unit and/or counseling patient:: 15-24 minutes
[2023-08-23 10:00] VITALS: BP 104/71
[2023-08-23] MEDS: AMPICILLIN 2,000 MG in SODIUM CHLORIDE 0.9% 100 ML 200 MG IV (10:25)
[2023-08-23] MEDS: LACTATED RINGERS 1,000 ML 100 ML IV (10:25)
[2023-08-23] MEDS: OXYTOCIN PREMIX 30 UNIT/500 ML PLAST..BAG IV (10:27)
[2023-08-23] MEDS: AMPICILLIN 1,000 MG in SODIUM CHLORIDE 0.9% 100 ML 200 MG IV (14:00)
--- NOTE | 2023-08-23 14:01 | PM.OBPNLAB ---
Date/Time Date Patient Seen: 08/23/23 Time Patient Seen: 13:00 Pain Control Pain control: tolerating well Pelvic Exam Dilation (cm): 4 Effacement (%): 75 station: -1 Amniotic membrane status: Intact Contractions Contractions on admission: irregular Monitor mode: External Pitocin rate (mU/min): 6 Contraction frequency (min): 3 Contraction duration (min): 1 Contraction pattern: Regular Contraction intensity: Mild Status status: Category l Heart Rate Baseline: 145 Monitor Accelerations: Present Monitor Decelerations: Absent Monitor Variability: Moderate Assessment and Plan Assessment: induction ongoing Comments: AROM with copious clear amniotic fluid Expectant management to
--- NOTE | 2023-08-23 16:24 | PM.OBPNLAB ---
Date/Time Date Patient Seen: 08/23/23 Time Patient Seen: 16:24 Pain Control Pain control: other (Getting very uncomfortable) Pelvic Exam Dilation (cm): 8 Effacement (%): 85 station: -2 Amniotic membrane status: Ruptured Contractions Contractions on admission: irregular Monitor mode: External Pitocin rate (mU/min): 6 Contraction frequency (min): 3 Contraction duration (min): 1 Contraction pattern: Regular Contraction intensity: Strong/Firm Status status: Category l Heart Rate Baseline: 145 Monitor Accelerations: Present Monitor Decelerations: Absent Monitor Variability: Moderate Assessment and Plan Assessment: active labor Comments: Expected management to spontaneous vaginal delivery
[2023-08-23] MEDS: KETOROLAC 30 MG/ML VIAL IV (19:27)
[2023-08-24] MEDS: IBUPROFEN 600 MG TABLET PO (05:41)
[2023-08-24 06:16] LABS: Hematocrit 36.3 % (36-46); Hemoglobin 12.3 g/dL (12.0-16.0)
[2023-08-24 13:19] VITALS: BP 108/64; PULSE 73; RESP 15; TEMP 36.8
--- NOTE | 2023-09-09 18:38 | PM.OBDS.1 ---
Discharge Providers Provider Date of admission: 08/23/23 06:59 Discharge Date: 08/24/23 Primary care physician: Doctor Carleen MD Consults: 08/23/23 07:22 Consult to Anesthesiology Urgent Comment: Consulting Provider: Anesthesiologist Reason for consultation: Epidural Has provider been notified: No Discharge provider: Ana Perry MD Summary Hospital Course Date Patient Seen: 08/24/23 Time Patient Seen: 07:30 Diagnoses: 39 weeks gestation Induction of labor with Pitocin Artificial rupture of membranes GBS + Mild shoulder dystocia Spontaneous vaginal delivery Hospital Course: Patient is a 33 year old who presented o 08/23/23 for a scheduled induction of labor. She was 4cm/75/-1. Pitocin was started. After 2 doses of antibiotics, AROM was performed with clear amniotic fluid. She progessed to complete dilation and delivered at 1618 pm. A mild shoulder dystocia was encountered and relieved with Smith maneuver. Apars 7 at 1 minute and 9 at 5 minutes. No anesthesia. No lacerations. BW: 7#15.9oz. . Mom and stable to recovery. Her course was unremarkable and she was discharged to home on 08/24/23. Peripartum Data Infant Delivery Method: Natural Vaginal Laceration Description: None Episiotomy description: None Procedures: Pitocin inductio of labor GBS prophylaxis Artificial rupture of membranes Spontaneous vaginal delivery Mild shoulder dystocia complications: none Miller 1: Gender: Male Disposition of : home Status at Discharge Cognitive/behavioral status at discharge: oriented Functional status at discharge: independent ambulation Overall status at discharge: patient is progressing back to baseline Time Spent with Patient Time attestation: Total time spent providing and/or coordinating discharge services: Time spent: Less than 30 minutes Objective Labs 08/24/23 06:10 Exam Narrative Exam Narrative: Generally: Patient is sitting up in bed, holding , no acute distress Fundus: Firm at U-1 Extremities: Trace edema, negative Homans Discharge Plan Discharge Plan Patient Disposition: Home Provider Discharge Comment: Call with fever, chills, or bleeding vaginally more than a pad in an hour Ibuprofen 600 mg every 6 hours as needed for cramps Discharge orders & Medications Prescriptions: Continued prenat.vits,meliton,[id number] Tablet 1 tab PO DAILY Discontinued ondansetron 4 mg tablet,disintegrating 4 mg PO Q6-8H PRN (Reason: nausea and vomiting) Qty: 20 2RF ferrous gluconate 324 mg (37.5 mg iron) tablet 324 mg PO DAILY No Action (DME) blood-glucose meter [Blood Glucose Monitoring] Kit See Rx Instructions .ROUTE .MEDSUPPLY Qty: 1 0RF Rx Instructions: To use with testing fasting and 2 hr after each meal 4x daily (DME) Blood Glucose Test Strip See Rx Instructions .ROUTE .MEDSUPPLY Qty: 120 3RF Rx Instructions: Testing blood sugars fasting and 2 hr PP (DME) lancets Misc See Rx Instructions .ROUTE .MEDSUPPLY Qty: 120 3RF Rx Instructions: Testing blood sugars fasting and 2 hr PP amoxicillin-pot clavulanate 875-125 mg tablet 1 tab PO BID Qty: 14 0RF Follow up/Referrals: Ana Perry MD [Family Provider] - 6 Weeks (Please follow up with Dr. Perry on October 05Sunday @ 1:00pm. Please call the clinic with any questions ) Diet/Activity/Treatments Diet: Regular Activity: Nothing in the vagina for 6 weeks Skin/Wound/Dressing Care Report to your healthcare provider any signs of infection, such as:: chills, fever, increased pain and unusual drainage Visit Report/Discharge Packet Stand Alone Forms: Discharge: Care, Patient Portal/API, Stroke Signs & Symptoms Discharge Data Primary Care Provider: Miscellaneous,Doctor
--- NOTE | 2023-09-09 18:47 | PM.OBPRVD ---
Events: Labor Induction Labor & Delivery Delivery date: 08/23/23 Intrapartal Events: Intolerance Cervical ripening method: none Induction method: per pitocin protocol Delivery augmentation: rupture of membranes Delivery monitor: external FHT and external uterine Route of delivery: Episiotomy description: None L&D Laceration Description: None Quantitative Blood Loss: 100 Anesthesia Type: None Complications: Mild shoulder dystocia Baby 1: Infant gender: Male Presentation: vertex Position: Right Occiput Anterior Placenta delivery description: Spontaneous Cord Vessel Description: 3 Vessels score (1 min): 7 score (5 min): 9 weight: 7 lb 15.9 oz Narrative: Patient complete and pushed x 7 min. At 1618, a live male infant delivered spontaneously in the ELMA presentation, over an intact perineum. A mild shoulder dystocia was encountered and relieved with Smith maneuver. 60 sec from head to remainder of body. The was placed on mom's abdomen. The cord was double-clamped and cut after it stopped pulsing. Pitocin was given in the IVF's. The placenta delivered intact with a 3-vessel cord at 1628. Fundus was massaged to firm. QBL 100cc. No lacerations. No anesthesia. . Apgars 7 at 1 min and 9 at 5 minutes. Mom and infant stable to recovery. Plan for aftercare: Routine care
== END 2023-08-24 13:15 | disposition home or self-care (01) | DRG 807 ==
PROVIDERS: Admitting Provider Obstetrics & Gynecology; Family Provider Obstetrics & Gynecology; Referring Provider Obstetrics & Gynecology; Visit Provider Obstetrics & Gynecology
DX: O24.420 Gestational diabetes mellitus in childbirth, diet controlled (principal); Z37.0 Single live birth; O36.8130 Decreased fetal movements, third trimester, not applicable or unspecified; O99.824 Streptococcus B carrier state complicating childbirth; Z3A.39 39 weeks gestation of pregnancy
CPT/HCPCS: 36415; 59025; 59050; 59400; 85014; 85018; 85025; 86850; 86900; 86901; G0379; J0290; J1885; J2590

== ENCOUNTER 2023-09-02 12:37 | Emergency (ER) | payer OTHER, SELFPAY ==
[2023-09-02] VITALS (13 sets, daily range): BP systolic 114–143; BP diastolic 70–84; PULSE 85–114; RESP 14–28; TEMP 36.9–37.2; O2SAT 96–100; BMI 31.6
[2023-09-02] MEDS: SODIUM CHLORIDE 0.9% 916.26 ML IV (13:24)
[2023-09-02 13:30] LABS: Hematocrit 44.7 % (36-46); Mean Corpuscular HGB Conc 33.6 % (30-36); Mean Corpuscular Hemoglobin 29.9 PG (26-34); Mean Corpuscular Volume 89.2 fL (80-100); Platelet Count 428 X10^3/uL (150-400); Red Blood Cell Count 5.01 X10^6/uL (4.0-5.2); Red Cell Distribution Width 14.3 % (11.6-14.8); White Blood Cell Count 28.9 X10^3/uL (4.5-11.0)
[2023-09-02 13:32] LABS: Add Manual Diff / Slide Review YES
[2023-09-02 13:41] LABS: Alanine Aminotransferase 24 IU/L (<35); Albumin 4.3 g/dL (3.5-5.0); Albumin Globulin Ratio 1.2 (1.0-2.8); Alkaline Phosphatase 124 U/L (38-126); Aspartate Aminotransferase 22 IU/L (14-36); BUN Creatinine Ratio 17.4 (6-22); Bilirubin Total 0.9 mg/dL (0.2-1.3); Blood Urea Nitrogen 12 mg/dL (7-17); Calcium 9.6 mg/dL (8.4-10.2); Carbon Dioxide 22 mmol/L (22-32); Chloride 102 mmol/L (98-107); Creatine Kinase 25 U/L (30-135); Estimated Glomerular Filt Rate > 60 mL/min (>60); Globulin 3.5 g/dL (1.7-4.1); Glucose 155 mg/dL (70-100); HEMOLYSIS 38 (0-50); Potassium 3.8 mmol/L (3.4-5.1); Sodium 134 mmol/L (137-145); Total Protein 7.8 g/dL (6.3-8.2)
[2023-09-02 13:45] LABS: Neutrophils Absolute Manual 25143 /uL (3000-5900); Total Cells Counted 100
[2023-09-02 13:46] LABS: RBC Morphology Normal Morphology
[2023-09-02 13:53] LABS: Troponin I < 0.012 ng/mL (0.01-0.034)
[2023-09-02 13:58] LABS: Procalcitonin 0.96 ng/mL (<0.5)
[2023-09-02 14:04] LABS: COVID19 -Nasal RAPID Negative (Negative)
[2023-09-02 14:35] LABS: Appearance Urine UA CLEAR; Bilirubin Urine UA NEGATIVE (NEGATIVE); Color Urine UA YELLOW; Glucose Urine UA NEGATIVE (Negative); Ketones Urine UA NEGATIVE (NEGATIVE); Leukocyte Esterase Urine UA 3+ (NEGATIVE); Nitrite Urine UA NEGATIVE (Negative); Occult Blood Urine UA 3+ (Negative); Protein Urine UA TRACE (Negative); Specific Gravity Urine UA <=1.005 (1.000-1.035); Urobilinogen Urine UA 0.2 E.U./dL (0.2)
[2023-09-02 14:38] LABS: pH Urine UA 6.5 (4.5-8.0)
[2023-09-02] MEDS: GENTAMICIN 370 MG in SODIUM CHLORIDE 0.9% 100 ML 109.25 MG IV (14:42)
[2023-09-02 14:46] LABS: WBC Urine 10-30/HPF (0-5/HPF)
--- NOTE | 2023-09-02 14:46 | DI.CT.S_ITS ---
PROCEDURE: CT ABDOMEN PELVIS W CON INDICATIONS: ab pain fever post TECHNIQUE: After the administration of intravenous contrast, axial sections acquired from the lung bases to the pubic symphysis. Coronal and sagittal reformats were performed. For radiation dose reduction, the following was used: automated exposure control, adjustment of mA and/or kV according to patient size. COMPARISON: [facility], CT, ABDOMEN/PELVIS WITH CONTRAST, 05/18/2017, 15:42. FINDINGS: Lower thorax: The lung bases are clear. Heart size normal. No hiatal hernia. Liver: Normal in size and attenuation. No contour deformity present. Biliary system: No calcified cholelithiasis or pericholecystic inflammation. No intra or extrahepatic bile duct dilatation. Pancreas: Unremarkable without mass or inflammation evident. Spleen: The spleen is enlarged at 15 cm. No intrinsic mass lesion. Adrenals: Normal morphology and density. Reproductive system: Bulky large uterus within expected limits. No significant periuterine inflammatory change. Urinary system: Normal renal size and attenuation. No renal calculi, hydronephrosis, or solid mass present. Urinary bladder unremarkable. Gastrointestinal system: The bowel is unremarkable without evidence of bowel obstruction or inflammation. The stomach appears unremarkable. Appendix: No findings to suggest acute appendicitis. Peritoneal spaces: No mesenteric or retroperitoneal adenopathy. No free air. No free fluid. no abscess free fluid. Vasculature: The IVC, aorta and iliac vasculature are unremarkable. Abdominal wall: Abdominal wall intact without evidence of ventral or inguinal hernias. Musculoskeletal: Normal bone mineralization. No acute fractures. IMPRESSION: 1. uterus without significant inflammatory change, peritonitis or abscess. No free fluid. Approved by: Korey Leon M.D. on 09/02/2023 at 14:32
[2023-09-02 14:47] LABS: Bacteria Urine Moderate (10-30); Culture Indicated Urine Specimen Cultured; RBC Urine 1-5/HPF (0-5/HPF); Squamous Epithelial Cell Urine 1-5 /HPF (0-5/HPF)
--- NOTE | 2023-09-02 14:47 | DI.RAD.S_ITS ---
PROCEDURE: XR CHEST 1V INDICATIONS: fever TECHNIQUE: One view of the chest was acquired. COMPARISON: None. FINDINGS: Surgical changes and devices: None. Lungs and pleura: Lungs are clear. No pleural effusions or pneumothorax. Mediastinum: Mediastinal contours appear normal. Heart size is normal. Bones and chest wall: No suspicious bony lesions. Overlying soft tissues appear unremarkable. IMPRESSION: Portable chest within normal limits for age. Approved by: Korey Leon M.D. on 09/02/2023 at 14:34
--- NOTE | 2023-09-02 15:11 | ED.FEVER ---
HPI - Fever General Chief Complaint: OB/Uterine Contractions Stated Complaint: poss uterine infection Post T-10 Dr sent Time Seen by Provider: 09/02/23 12:59 Source: patient Mode of arrival: Ambulatory History of Present Illness HPI Narrative: Patient 33-year-old female day 10. Presents today with fever. She had a vaginal delivery that was uneventful and presents with abdominal pain and fever today. She reports that she has been doing fine. This morning she woke up at 3:00 a.m. with a fever and some abdominal pain and cramping. She is had some slight bleeding. She denies any heavy bleeding. She is not soaking through pads in fact she reports only bleeding when she urinates and wipes. She reports it as a normal menstrual cycle type bleeding. She took Tylenol prior to arrival she is no longer having any abdominal pain. She has some all of back pain. She is currently breast-feeding have any rash or breast pain. No cough chest pain or shortness of breath. She is not any sort of sore throat. She did call on-call Ob recommended he come to the ED for evaluation. Related Data Home Medications Medication Instructions Recorded Confirmed prenat.vits,meliton,[id number] 1 tab PO DAILY 12/22/22 08/23/23 Previous Rx's Medication Instructions Recorded blood sugar diagnostic (Blood #120 ea 06/05/23 Glucose Test strips) blood-glucose meter (Blood Glucose #1 ea 06/05/23 Monitoring kit) lancets #120 ea 06/05/23 amoxicillin 875 mg-potassium 1 tab PO BID #14 tabs 09/02/23 clavulanate 125 mg tablet Allergies Allergy/AdvReac Type Severity Reaction Status Date / Time codeine [CODEINE] Allergy Unknown Verified 09/02/23 12:48 epinephrine [EPINEPHRINE] AdvReac Unknown BLACK OUT Verified 09/02/23 12:48 Review of Systems Review of Systems ROS Unobtainable: All systems reviewed & are unremarkable except as noted in HPI and below Patient History Medical History Gestational diabetes Family history of thyroid disorder Thumb laceration ENDOMETRITIS FOLLOWING DELIVERY Vaginal delivery Surgical History H/O tympanostomy History of tonsillectomy and adenoidectomy History of third molar tooth extraction Family History Mother Hypothyroidism H/O: hysterectomy Family/Other H/O: hysterectomy Hypothyroidism Grandmother Cancer Eczema Anxiety Son Eczema Grandfather Skin cancer Pacemaker Father History of hip replacement Grandfather Testicular cancer Meningitis Guillain-[place] syndrome Grandmother COPD (chronic obstructive pulmonary disease) Family/Other Heart disease Sister hemorrhage History of anesthesia reaction Spinal and epidural anesthesia-induced headache during labor and delivery Social History marital status: household members: spouse and children lives independently: Yes caregiver/support person: Yes housing: house pets and animals: Yes (1 dog) education level: master's degree (3 gradebutter grader) occupational status: employed current occupational exposures/hazards: No special hanny needs: No travel history: over 6 months ago seatbelt use: always helmet use: Yes water heater temp set < 120 deg: Yes working smoke detector in home: Yes fire extinguisher in home: Yes carbon monox detector in home: Yes firearms in home: Yes firearms unloaded and locked: Yes do you feel safe at home: Yes Smoking Status: Never smoker second hand exposure: No alcohol intake: former (occasionally when not ) substance use type: does not use during the past year weight has: remained stable well-balanced diet: daily or most days daily servings fruits/ve or more times/day caffeine: Yes (1 cup coffee/day) Type(s) of exercise: walking, aerobic and weight lifting frequency: 3-4 times per week Smoking Status: Never smoker Substance Use Type: does not use Exam Initial Vital Signs Initial Vital Signs: Vital Signs Temperature 99.0 F 09/02/23 12:48 Pulse Rate 114 H 09/02/23 12:48 Respiratory Rate 16 09/02/23 12:48 Blood Pressure 118/84 09/02/23 12:48 Pulse Oximetry 96 09/02/23 12:48 Oxygen Delivery Method Room Air 09/02/23 12:48 GENERAL: Alert very well-appearing 33-year-old female HEENT: Head atraumatic,EOMI, pupils reactive, face symmetric, moist mucous membranes CARDIOVASCULAR: Regular rate and rhythm without murmurs, rubs or gallops. RESPIRATORY: Breath sounds equal bilaterally, no wheezes rales or rhonchi. ABDOMEN: Soft, nontender. Normoactive bowel sounds all 4 quadrants. No guarding or rebound. : No CVA tenderness EXTREMITIES: Normal range of motion, no clubbing or edema. Neurovascularly intact NEUROLOGICAL: Alert and oriented x4.Normal gait and speech. Cranial nerves II through XII grossly intact. SKIN: Warm, dry, no laceration, no petechiae, no rashes or lesions. Course Orders Ordered: ED Orders 09/02/23 12:59 EKG-12 Lead Stat 09/02/23 13:14 Complete Blood Count AUTO DIFF Stat Comprehensive Metabolic Panel Stat Lactate (Lactic Acid) Stat Procalcitonin Stat Troponin & CK Cardiac Panel Stat 09/02/23 13:35 Blood Culture Stat 09/02/23 13:39 COVID19 -Nasal RAPID Stat 09/02/23 14:29 Urinalysis and Microscopic Stat Urine Culture Stat 09/02/23 14:46 CT abdomen pelvis w con Stat 09/02/23 14:47 Chest [XR chest 1V] Stat Discontinued Medications Amoxicillin/Clavulanate Potassium (Amoxicillin/Clav 875/125 Mg) 1 tab PO NOW ONE Stop: 09/02/23 16:56 Last Admin: 09/02/23 17:03 Dose: 1 tab Documented By: ODELL Sodium Chloride (Normal Saline 0.9%) 2,748.78 mls @ 916.26 mls/hr 30 ml/kg infuse over 3 hr (2748.78 ml) IV NOW ONE Stop: 09/02/23 15:58 Last Infusion: 09/02/23 17:08 Dose: Infused Documented By: Admin: 09/02/23 13:24 Dose: 916.26 mls/hr Documented By: DREAD Clindamycin Phosphate (Cleocin) 900 mg in 50 mls @ 50 mls/hr IV NOW ONE Stop: 09/02/23 15:17 Last Infusion: 09/02/23 17:08 Dose: Infused Documented By: Admin: 09/02/23 16:14 Dose: 50 mls/hr Documented By: ODELL Gentamicin Sulfate 370 mg/ (Sodium Chloride) 109.25 mls @ 109.25 mls/hr IV NOW ONE Stop: 09/02/23 14:18 Last Infusion: 09/02/23 16:12 Dose: Infused Documented By: Infusion: 09/02/23 15:18 Dose: 109.25 mls/hr Documented By: Infusion: 09/02/23 14:52 Dose: 0 mls/hr Documented By: Admin: 09/02/23 14:42 Dose: 109.25 mls/hr Documented By: ODELL Vital Signs Vital signs: Vital Signs - 8 hr 09/02/23 12:48 09/02/23 13:37 09/02/23 13:39 Temperature 99.0 F Pulse Rate 114 H 101 H Respiratory Rate 16 16 Blood Pressure 118/84 120/72 Pulse Oximetry 96 Oxygen Delivery Method Room Air 09/02/23 13:39 09/02/23 14:00 09/02/23 14:00 Temperature Pulse Rate 99 H 93 H Respiratory Rate 23 16 Blood Pressure 119/70 Pulse Oximetry 96 99 Oxygen Delivery Method 09/02/23 14:34 09/02/23 14:35 09/02/23 14:35 Temperature Pulse Rate 96 H 97 H Respiratory Rate 21 Blood Pressure 114/71 Pulse Oximetry 97 97 Oxygen Delivery Method 09/02/23 15:13 09/02/23 15:14 09/02/23 15:14 Temperature Pulse Rate 93 H 91 H Respiratory Rate 26 H Blood Pressure 118/74 Pulse Oximetry 98 Oxygen Delivery Method 09/02/23 15:30 09/02/23 15:30 09/02/23 16:00 Temperature Pulse Rate 85 Respiratory Rate 28 H Blood Pressure 133/70 133/78 Pulse Oximetry 100 Oxygen Delivery Method Room Air 09/02/23 16:00 09/02/23 16:21 09/02/23 16:21 Temperature 98.5 F Pulse Rate 92 H 88 Respiratory Rate 14 Blood Pressure 126/72 Pulse Oximetry 100 100 Oxygen Delivery Method 09/02/23 16:30 09/02/23 16:30 09/02/23 17:00 Temperature Pulse Rate 86 89 Respiratory Rate 21 27 H Blood Pressure 143/79 H Pulse Oximetry 100 100 Oxygen Delivery Method 09/02/23 17:00 Temperature Pulse Rate Respiratory Rate Blood Pressure 131/78 Pulse Oximetry Oxygen Delivery Method MDM - Fever Lab Data 09/02/23 13:14 09/02/23 13:14 Labs: Lab Results 09/02/23 09/02/23 09/02/23 Range/Units 13:14 13:39 14:29 WBC 28.9 H (4.5-11.0) X10^3/uL RBC 5.01 (4.0-5.2) X10^6/uL Hgb 15.0 (12.0-16.0) g/dL Hct 44.7 (36-46) % MCV 89.2 (80-100) fL MCH 29.9 (26-34) PG MCHC 33.6 (30-36) % RDW 14.3 (11.6-14.8) % Plt Count 428 H (150-400) X10^3/uL Neut % (Auto) Not Reportable Lymph % (Auto) Not Reportable [place] % (Auto) Not Reportable Eos % (Auto) Not Reportable Baso % (Auto) Not Reportable Lymph # (Auto) Not Reportable [place] # (Auto) Not Reportable Baso # (Auto) Not Reportable Total Counted 100 Seg Neutrophils % 87.0 H (38-70) % Lymphocytes % (Manual) 7.0 L (25-45) % Monocytes % (Manual) 6.0 (2-11) % Neutrophils # (Manual) 57161 H (1159-6959) /uL RBC Morphology Normal morphology Sodium 134 L (137-145) mmol/L Potassium 3.8 (3.4-5.1) mmol/L Chloride 102 (98-107) mmol/L Carbon Dioxide 22 (22-32) mmol/L BUN 12 (7-17) mg/dL Creatinine 0.69 (0.52-1.04) mg/dL Estimated GFR > 60 (>60) mL/min BUN/Creatinine Ratio 17.4 (6-22) Glucose 155 H (70-100) mg/dL Lactate 2.0 (0.7-2.1) mmol/L Calcium 9.6 (8.4-10.2) mg/dL Total Bilirubin 0.9 (0.2-1.3) mg/dL AST 22 (14-36) IU/L ALT 24 (<35) IU/L Alkaline Phosphatase 124 (38-126) U/L Total Creatine Kinase 25 L (30-135) U/L Troponin I < 0.012 (0.01-0.034) ng/mL Total Protein 7.8 (6.3-8.2) g/dL Albumin 4.3 (3.5-5.0) g/dL Globulin 3.5 (1.7-4.1) g/dL Albumin/Globulin Ratio 1.2 (1.0-2.8) Procalcitonin 0.96 H (<0.5) ng/mL Urine Color Yellow Urine Appearance Clear Urine pH 6.5 (4.5-8.0) Ur Specific [place] <=1.005 (1.000-1.035) Urine Protein Trace H (Negative) Urine Glucose (UA) Negative (Negative) g/dL Urine Ketones Negative (NEGATIVE) Urine Occult Blood 3+ H (Negative) Urine Nitrate Negative (Negative) Urine Bilirubin Negative (NEGATIVE) Urine Urobilinogen 0.2 (0.2) E.U./dL Ur Leukocyte Esterase 3+ H (NEGATIVE) Urine RBC 1-5/hpf (0-5/HPF) Urine WBC 10-30/hpf H (0-5/HPF) Ur Squamous Epith Cells 1-5 /hpf (0-5/HPF) Urine Bacteria Moderate (10-30) H (None) Ur Culture Indicated? Specimen cultured SARS-CoV-2 (PCR) Negative (Negative) MDM Narrative Medical decision making narrative: Patient is a healthy 33-year-old female day 10. Presenting today with fever and abdominal cramping. She is previously had endometritis before she actually reports that that pain was much worse than today. She clinically appears well. However initial vitals do meet sepsis criteria low-grade temperature of 99? tachycardia on 14 with a normal pressure. She was immediately given sepsis IV fluids. Abdomen is really soft and nontender certainly not an acute abdomen. No real CVA tenderness but she is complaining of some generalized back pain. No evidence mastitis she is actively . Labs: Leukocytosis 28.9 with a left shift, sodium 134 glucose 155 normal AST normal ALT lactate 2.0, procalcitonin elevated 0.96 negative troponins, urinalysis leukocytes with wbc's and some bacteria negative for nitrate blood cultures are pending negative for COVID Imaging: Chest x-ray and abdominal CT no abnormality or cause of fever or pain Dr. Hoff initially updated patient's symptoms test results she reports atypical presentation for an endometritis however 28 white count is concerning. Agreed to do abdominal CT search for other causes Dr. Hoff updated imaging reports. Patient clinically appears very well abdomen remains soft and nontender serial abdominal exams. Blood cultures are pending. SHe is empirically given clindamycin and gentamicin. At this time agree with close outpatient follow-up and Augmentin for 7 days. Discharge Plan Departure Patient Disposition: Home Clinical Impression: Endometritis Instructions: Endometritis Activity Restrictions/Additional Instructions: *You have been diagnosed with presumed endometritis *What to do: At this time please follow-up with OBGYN they are aware of you. Take antibiotics until gone. I expect he will still have fever and some mild abdominal pain *Continue to take medications as directed Augmentin 875 mg twice a day for 7 days--> [facility] *Follow up with your primary care provider in 2-3 days or call [phone] *Return to ER if you should have increasing pain bleeding, or any new, worsening or concerning symptoms Prescriptions: New amoxicillin-pot clavulanate 875-125 mg tablet 1 tab PO BID Qty: 14 0RF No Action (DME) blood-glucose meter [Blood Glucose Monitoring] Kit See Rx Instructions .ROUTE .MEDSUPPLY Qty: 1 0RF Rx Instructions: To use with testing fasting and 2 hr after each meal 4x daily (DME) Blood Glucose Test Strip See Rx Instructions .ROUTE .MEDSUPPLY Qty: 120 3RF Rx Instructions: Testing blood sugars fasting and 2 hr PP (DME) lancets Misc See Rx Instructions .ROUTE .MEDSUPPLY Qty: 120 3RF Rx Instructions: Testing blood sugars fasting and 2 hr PP prenat.vits,meliton,[id number] Tablet 1 tab PO DAILY Referrals: Ana Perry MD [Family Provider] - Miscellaneous,DoctorMD [Primary Care Provider] - Myesha Caldwell DO [Physician] - Stand Alone Forms: Patient Portal/API
[2023-09-02] MEDS: CLINDAMYCIN 900 MG/50 ML PIGGYBACK 50 MG IV (16:14)
[2023-09-02] MEDS: AMOXICILLIN/CLAV 875/125 MG 1 TAB PO (17:03)
== END 2023-09-02 17:19 | disposition home or self-care (01) ==
PROVIDERS: Emergency Provider Emergency Medicine; Family Provider Obstetrics & Gynecology
DX: O86.12 Endometritis following delivery (principal); Z20.822 Contact with and (suspected) exposure to COVID-19
CPT/HCPCS: 36415; 71045; 74177; 80053; 81001; 82550; 83605; 84145; 84484; 85007; 85025; 87040; 87077; 87086; 87147; 87635; 96365; 96367; 99284; C9803; Q9967

== ENCOUNTER → 2025-10-07 14:07 | Outpatient (CLI) | payer OTHER, SELFPAY ==
[2025-10-07 14:24] LABS: Add Manual Diff / Slide Review NO; Hematocrit 41.5 % (36-46); Hemoglobin 14.5 g/dL (12.0-16.0); Lymphocytes Absolute Auto 2300 /uL (1100-4500); Mean Corpuscular HGB Conc 34.9 % (30-36); Mean Corpuscular Hemoglobin 30.7 PG (26-34); Mean Corpuscular Volume 87.8 fL (80-100); Platelet Count 383 X10^3/uL (150-400)
[2025-10-07 14:33] LABS: Hemoglobin A1C% w Est Avg Glu 5.0 % (4.0-6.0)
[2025-10-07 14:56] LABS: Alanine Aminotransferase 29 IU/L (<35); Albumin 4.8 g/dL (3.5-5.0); Albumin Globulin Ratio 1.8 (1.0-2.8); Alkaline Phosphatase 68 U/L (38-126); Blood Urea Nitrogen 13 mg/dL (7-17); Calcium 9.3 mg/dL (8.4-10.2); Carbon Dioxide 23 mmol/L (22-32); Chloride 104 mmol/L (98-107); Cholesterol 191 mg/dL (140-199); Estimated Glomerular Filt Rate > 60 mL/min (>60); Globulin 2.6 g/dL (1.7-4.1); Glucose 109 mg/dL (70-99); HDL Cholesterol 74 mg/dL (40-60); HEMOLYSIS 22 (0-50); Potassium 3.7 mmol/L (3.4-5.1); Sodium 139 mmol/L (137-145); Total Protein 7.4 g/dL (6.3-8.2); Triglycerides 105 mg/dL (35-150)
== END ==
PROVIDERS: PCP Family Medicine; Referring Provider Family Medicine; Visit Provider Family Medicine
DX: Z00.00 Encounter for general adult medical examination without abnormal findings (principal); E78.5 Hyperlipidemia, unspecified; Z68.33 Body mass index [BMI] 33.0-33.9, adult; Z78.9 Other specified health status; Z86.32 Personal history of gestational diabetes
CPT/HCPCS: 36415; 80053; 80061; 83036; 85025